=== PATIENT | male | born 1985 | race African-American/Black ===

== ENCOUNTER 2019-05-18 03:06 | Inpatient (IN) | payer SELFPAY ==
[~2019-05-18] VITALS: Ht 182.9 cm; Wt 143.3 kg
[2019-05-18] MEDS ORDERED: IPRATROPIUM/ALBUTEROL 0.5-3(2.5)MG/3ML NEB HHN ONE (03:45)
[2019-05-18] MEDS ORDERED: FUROSEMIDE 40MG/4ML VIAL IVP ONE (04:30)
[2019-05-18 04:38] LABS: BASOPHILS % 0.5 % (0.0-2.0); EOSINOPHILS % 0.5 % (0.0-5.0); HEMATOCRIT. 33.5 % (42.0-52.0); HEMOGLOBIN. 10.9 g/dL (14.0-18.0); LYMPHOCYTES % 13.4 % (20.0-50.0); MEAN CORPUSCULAR HEMOGLOBIN 27.9 pg (28.0-32.0); MEAN CORPUSCULAR VOLUME 85.9 fL (80.0-94.0); MEAN PLATELET VOLUME 7.8 fl (7.4-10.4); NEUTROPHILS % 80.6 % (40.0-76.0); PLATELET 447 x1000/uL (130-400); RED CELL DISTRIBUTION WIDTH 17.7 % (11.6-14.6)
[2019-05-18 04:42] LABS: CHLORIDE 101 mEq/L (98-107)
[2019-05-18] MEDS ORDERED: ONDANSETRON HCL 4MG/2ML INJ IV PRN (09:45)
[2019-05-18] MEDS ORDERED: ENOXAPARIN 40MG/0.4ML SYR SUBCUT SCH (09:45)
[2019-05-18] MEDS ORDERED: DOCUSATE SODIUM 100MG CAPSULE PO PRN (09:45)
[2019-05-18] MEDS ORDERED: IPRATROPIUM/ALBUTEROL 0.5-3(2.5)MG/3ML NEB HHN PRN (09:45)
[2019-05-18] MEDS ORDERED: CLONIDINE 0.1MG TABLET PO PRN (09:45)
[2019-05-18] MEDS ORDERED: POTASSIUM CHLORIDE 20MEQ TABLET SR PO NR (09:45)
[2019-05-18] MEDS ORDERED: GUAIFENESIN 200MG/10ML SUGAR FREE UDC PO PRN (09:45)
[2019-05-18] MEDS ORDERED: NITROGLYCERIN 0.4MG TABLET SL SL PRN (09:45)
[2019-05-18] MEDS ORDERED: MAGNESIUM/ALUMINUM HYDROXIDE/SIMETHICONE 30ML UDC PO PRN (09:45)
[2019-05-18] MEDS ORDERED: ACETAMINOPHEN 325MG TABLET PO PRN (09:45)
[2019-05-18] MEDS ORDERED: ZOLPIDEM TARTRATE 5MG TABLET PO PRN (09:45)
[2019-05-18] MEDS ORDERED: ENOXAPARIN 40MG/0.4ML SYR SUBCUT NR (11:15)
[2019-05-18 15:42] LABS: CREATINE KINASE MB FRACTION 3.7 ng/mL (0.5-3.6)
[2019-05-18] MEDS ORDERED: KETOROLAC 15MG/ML VIAL IV PRN (16:52)
[2019-05-18 17:00] VITALS: BP 148/86
[2019-05-18 17:10] VITALS: BP 148/86
[2019-05-18] MEDS ORDERED: [UNRECOGNIZED DRUG - CODE] MT (19:02)
[2019-05-18] MEDS ORDERED: TORS100T11 MT (19:02)
[2019-05-18] MEDS ORDERED: POTA10CA42 MT (19:02)
[2019-05-18] MEDS ORDERED: METO25TA6 PO (19:02)
[2019-05-18] MEDS ORDERED: SOTA80TA MT (19:02)
[2019-05-18 20:00] VITALS: BP 108/81
[2019-05-18] MEDS: LISINOPRIL 20MG TABLET PO SCH (21:00)
[2019-05-18] MEDS: ENOXAPARIN 30MG/0.3ML SYR SUBCUT SCH (21:00)
[2019-05-18] MEDS: FUROSEMIDE 40MG/4ML VIAL IVP SCH (21:22)
[2019-05-18] MEDS: SPIRONOLACTONE 25MG TABLET PO SCH (21:23)
[2019-05-18 23:26] LABS: METHADONE URINE SCREEN NEGATIVE (NEGATIVE); OPIATES URINE SCREEN NEGATIVE (NEGATIVE); PHENCYCLIDINE URINE SCREEN NEGATIVE (NEGATIVE)
[2019-05-18 23:27] LABS: *AMPHETAMINES SCREEN URINE NEGATIVE (NEGATIVE); *BARBITURATES SCREEN URINE NEGATIVE (NEGATIVE); *BENZODIAZEPINES SCREEN URINE NEGATIVE (NEGATIVE); *COCAINE SCREEN URINE NEGATIVE (NEGATIVE); CANNABINOID URINE SCREEN NEGATIVE (NEGATIVE)
[2019-05-18 23:44] LABS: CREATINE KINASE MB FRACTION 3.5 ng/mL (0.5-3.6)
[2019-05-19] VITALS: BP 141/77
[2019-05-19 04:00] VITALS: BP 119/53
[2019-05-19 08:32] VITALS: BP 147/88
[2019-05-19] MEDS: ENOXAPARIN 30MG/0.3ML SYR SUBCUT SCH (09:00)
[2019-05-19] MEDS ORDERED: ASPIRIN 325MG EC TABLET PO SCH (09:00)
[2019-05-19] MEDS: FUROSEMIDE 40MG/4ML VIAL IVP SCH (09:45)
[2019-05-19] MEDS: SPIRONOLACTONE 25MG TABLET PO SCH (09:46)
[2019-05-19] MEDS: LISINOPRIL 20MG TABLET PO SCH (09:46)
[2019-05-19 11:01] VITALS: BP 150/91
[2019-05-19 11:10] VITALS: BP 150/91
== END 2019-05-19 12:10 | disposition home or self-care (01) | DRG 194 ==
LOC: ER 03:06 → EDBEDREQ 04:22 → 7WST 04:54 → EDBEDREQ 04:56 → ENRESERV 14:29
PROVIDERS: ADMIT Internal Medicine; ATTEND Internal Medicine
PROC: 5A09357 Assistance with Respiratory Ventilation, Less than 24 Consecutive Hours, Continuous Positive Airway Pressure (ICD-10-PCS; principal; 2019-05-19)
DX: I13.0 Hypertensive heart and chronic kidney disease with heart failure and stage 1 through stage 4 chronic kidney disease, or unspecified chronic kidney disease (principal); N17.0 Acute kidney failure with tubular necrosis; I50.43 Acute on chronic combined systolic (congestive) and diastolic (congestive) heart failure; E46 Unspecified protein-calorie malnutrition; D63.8 Anemia in other chronic diseases classified elsewhere; E66.9 Obesity, unspecified; E87.6 Hypokalemia; F12.90 Cannabis use, unspecified, uncomplicated; F17.210 Nicotine dependence, cigarettes, uncomplicated; N18.9 Chronic kidney disease, unspecified; Z91.14 Patient's other noncompliance with medication regimen; Z68.41 Body mass index [BMI] 40.0-44.9, adult
CPT/HCPCS: 36415; 71045; 80048; 80061; 80305; 82550; 82553; 83036; 84484; 93005; 93970; 94640; 94660; 96374; 99285; J1650; J1940; J7620